=== PATIENT | female | born 1990 | race African-American/Black ===

== ENCOUNTER 2022-09-19 20:41 | Observation (INO) | payer SELFPAY ==
[~2022-09-19] VITALS: Ht 167.6 cm; Wt 57.0 kg
[2022-09-19] MEDS ORDERED: SODIUM CHLORIDE 0.9% 1,000 ML IV ONE (21:45)
[2022-09-19] MEDS ORDERED: METOCLOPRAMIDE HCL 10MG/2ML VIAL IV ONE (21:45)
[2022-09-19 22:43] LABS: BASOPHILS % 0.3 % (0.0-2.0); EOSINOPHILS % 0.6 % (0.0-5.0); HEMATOCRIT. 33.7 % (36.0-48.0); HEMOGLOBIN. 11.4 g/dL (12.0-16.0); LYMPHOCYTES % 10.1 % (20.0-50.0); MEAN CORPUSCULAR HEMOGLOBIN 30.4 pg (28.0-32.0); MEAN CORPUSCULAR VOLUME 89.9 fL (81.0-99.0); MEAN PLATELET VOLUME 9.7 fl (7.4-10.4); MONOCYTES % 13.5 % (2.0-8.0); NEUTROPHILS % 75.5 % (40.0-76.0); PLATELET 198 x1000/uL (130-400); RED BLOOD CELL COUNT 3.74 mill/uL (4.2-5.4); RED CELL DISTRIBUTION WIDTH 12.9 % (11.6-14.6)
[2022-09-19 22:49] LABS: CHLORIDE 101 mEq/L (98-107)
[2022-09-19 22:58] LABS: CLARITY URINE CLEAR (CLEAR); COLOR URINE YELLOW (YELLOW); KETONES URINE 4+ (NEGATIVE); LEUKOCYTE ESTERASE URINE NEGATIVE (NEGATIVE); NITRITE URINE NEGATIVE (NEGATIVE); OCCULT BLOOD URINE NEGATIVE (NEGATIVE); PROTEIN URINE TRACE (NEGATIVE); SPECIFIC GRAVITY URINE 1.018 (1.005-1.030)
[2022-09-20] MEDS ORDERED: METO5TAB86 MT (01:10)
[2022-09-20] MEDS ORDERED: ACET-2708 MT (01:10)
[2022-09-20 01:50] VITALS: BP 97/52
[2022-09-20] MEDS ORDERED: PREN-176 PO (03:04)
[2022-09-20] MEDS: TERBUTALINE SULFATE 1MG/ML VIAL SUBCUT SCH ×2 (05:07→06:50)
[2022-09-20] MEDS: LACTATED RINGERS 1,000 ML IV SCH ×2 (05:07→06:54)
== END 2022-09-20 08:00 | disposition home or self-care (01) ==
LOC: ER 21:23 → 8 EST LDRP 09-20 02:32
PROVIDERS: ADMIT Obstetrics & Gynecology; ATTEND Obstetrics & Gynecology
DX: O98.513 Other viral diseases complicating pregnancy, third trimester (principal); U07.1 COVID-19; O99.283 Endocrine, nutritional and metabolic diseases complicating pregnancy, third trimester; E86.0 Dehydration; O21.2 Late vomiting of pregnancy; O99.013 Anemia complicating pregnancy, third trimester; D64.9 Anemia, unspecified; O26.893 Other specified pregnancy related conditions, third trimester; R07.89 Other chest pain; Z3A.28 28 weeks gestation of pregnancy
CPT/HCPCS: 36415; 76705; 80053; 81003; 83690; 84484; 85025; 87426; 87804; 93005; 96361; 96372; 96374; 99285; C9803; G0378; J2765; J3105; J7030; 96360; 99281